=== PATIENT | female | born 1985 | race Caucasian/White ===

== ENCOUNTER 2016-06-24 20:20 | Emergency (ER) | payer OTHER ==
[~2016-06-24] VITALS: Ht 154.9 cm; Wt 68.5 kg
[2016-06-24 20:42] VITALS: BP 134/76
--- NOTE | 2016-06-24 21:51 | NUR ---
PATIENT AMBULATED TO ER BED 4.
--- NOTE | 2016-06-24 21:55 | NUR ---
PATIENT PRESENTS TO ED WITH C/O ABD PAIN X 1 WEEK, WITH N/V AND DIARRHEA X 1 DAY SKIN IS PINK/WARM/DRY; AAOX4 WITH EVEN AND STEADY GAIT; LUNGS CLEAR BL; HR EVEN AND REGULAR; PT DENIES ANY FEVER, CP, SOB, OR COUGH AT THIS TIME; PATIENT STATES PAIN OF 10/10 AT THIS TIME; VSS; PATIENT POSITIONED FOR COMFORT; HOB ELEVATED; BEDRAILS UP X2; BED DOWN. ER MD MADE AWARE OF PT STATUS.
--- NOTE | 2016-06-24 22:15 | NUR ---
PATIENT BEING EVALUATED BY DR. LEACH.
[2016-06-24 23:54] VITALS: BP 134/76
== END 2016-06-24 23:54 | disposition home or self-care (01) ==
LOC: MED 20:20
DX: A08.4 Viral intestinal infection, unspecified (principal)

== ENCOUNTER 2018-04-28 08:14 | Emergency (ER) | payer OTHER ==
[~2018-04-28] VITALS: Ht 154.9 cm; Wt 66.7 kg
[2018-04-28 08:19] VITALS: BP 130/92
--- NOTE | 2018-04-28 08:23 | NUR ---
PT AMBULATES TO BED 4
--- NOTE | 2018-04-28 08:26 | NUR ---
PATIENT PRESENTS TO ED WITH C/O NAUSEA, VOMITING, AND DIZZINESS SINCE SUNDAY. 2X VOMITING TODAY. REPORTS 9 WEEKS . LMP 02/24/2018, . NOT TAKING ANY MEDS. AAOX4 WITH EVEN AND STEADY GAIT; LUNGS CLEAR BL; HR EVEN AND REGULAR; PT DENIES ANY FEVER, CP, SOB, OR COUGH AT THIS TIME; SKIN IS PINK/WARM/DRY; DENIES PAIN, VSS; PATIENT POSITIONED FOR COMFORT; HOB ELEVATED; BEDRAILS UP X2; BED DOWN. ER MD MADE AWARE OF PT STATUS.
[2018-04-28] MEDS ORDERED: ONDANSETRON 4 MG ODT PO ONE (08:30)
--- NOTE | 2018-04-28 08:30 | NUR ---
Patient being evaluated by physician at bedside.
[2018-04-28 09:12] LABS: COLOR,URINE YELLOW (YELLOW); PH,URINE 7.5 (5.0-9.0)
[2018-04-28 09:13] LABS: APPEARANCE,URINE CLEAR (CLEAR); BILIRUBIN,URINE NEGATIVE (NEGATIVE); BLOOD, URINE NEGATIVE (NEGATIVE); LEUKOCYTE ESTERASE ,URINE NEGATIVE (NEGATIVE); NITRITE, URINE NEGATIVE (NEGATIVE); UGLUCOSE NEGATIVE (NEGATIVE)
[2018-04-28 10:00] VITALS: BP 122/88
--- NOTE | 2018-04-28 10:00 | NUR ---
Patient discharged with v/s stable. Written and verbal after care instructions given and explained. Patient alert, oriented and verbalized understanding of instructions. Ambulatory with steady gait. All questions addressed prior to discharge. ID band removed. Rx of ZOFRAN given. Patient educated on indication of medication including possible reaction and side effects. Patient advised to follow up with PMD.
== END 2018-04-28 10:00 | disposition home or self-care (01) ==
LOC: MED 08:14
DX: O21.8 Other vomiting complicating pregnancy (principal); Z3A.09 9 weeks gestation of pregnancy
CPT/HCPCS: 81003; 99283; Q0162

== ENCOUNTER 2018-05-05 09:20 | Emergency (ER) | payer OTHER ==
[~2018-05-05] VITALS: Ht 154.9 cm; Wt 64.4 kg
[2018-05-05 09:24] VITALS: BP 120/78
--- NOTE | 2018-05-05 09:34 | NUR ---
PATIENT AMBULATED TO BED 6 AT THIS TIME.
--- NOTE | 2018-05-05 09:35 | NUR ---
C/O BLEEDING PER VAGINA, LOWER ABDOMINAL PAIN & LOWER BACK PAIN X YESTERDAY. DENIES TRAUMA,N/V/D. LMP 02/24/18 . A0. PT STATED PREG 9 WEEKS.MED HX:DENIES. PATIENT STATES PAIN OF 9/10 AT THIS TIME; VSS; PATIENT POSITIONED FOR COMFORT; HOB ELEVATED; BEDRAILS UP X2; BED DOWN. ER MD MADE AWARE OF PT STATUS.
--- NOTE | 2018-05-05 10:01 | NUR ---
US AT BEDSIDE
[2018-05-05 10:10] LABS: BASOPHILS % (AUTO) 0.3 % (0.0-2.0); EOSINOPHILS # (AUTO) 0.1 K/uL (0-0.4); EOSINOPHILS % (AUTO) 1.6 % (0.0-4.0); HEMATOCRIT 39.1 % (36-48); HEMOGLOBIN 13.4 g/dL (12.0-16.0); LYMPHOCYTES # (AUTO) 1.7 K/uL (2.5-16.5); LYMPHOCYTES % (AUTO) 22.1 % (20.5-51.1); MEAN CORPUSCULAR HEMOGLOBIN 30 pg (27-31); MEAN CORPUSCULAR HGB CONC 34 g/dL (33-37); MEAN CORPUSCULAR VOLUME 86.8 fL (80-94); MONOCYTES # (AUTO) 0.5 K/uL (0.8-1.0); NEUTROPHILS # (AUTO) 5.5 K/uL (1.8-7.7); PLATELET COUNT (AUTO) 241 K/uL (140-450); RED BLOOD CELL COUNT(AUTO) 4.51 MIL/uL (4.20-5.40); RED CELL DISTRIBUTION WIDTH 13.2 % (11.6-13.7); WHITE BLOOD COUNT (AUTO) 7.9 K/uL (4.8-10.8)
[2018-05-05 10:20] LABS: ANION GAP 14.1 (8-16); CARBON DIOXIDE 22.6 mmol/L (21-32); CREATININE 0.5 mg/dL (0.6-1.3); POTASSIUM 3.7 mmol/L (3.5-5.1)
--- NOTE | 2018-05-05 10:22 | NUR ---
US GAVE DR VELASCO REPORT AT THIS TIME.
[2018-05-05 10:27] LABS: ALBUMIN 3.2 g/dL (3.4-5.0); TOTAL BILIRUBIN 0.6 mg/dL (0.0-1.0)
[2018-05-05 10:33] VITALS: BP 120/78
--- NOTE | 2018-05-05 10:33 | NUR ---
Patient discharged with v/s stable. Written and verbal after care instructions given and explained. Patient verbalized understanding. Ambulatory with steady gait. All questions addressed prior to discharge. Advised to follow up with PMD.
== END 2018-05-05 10:33 | disposition home or self-care (01) ==
LOC: MED 09:20
DX: O26.851 Spotting complicating pregnancy, first trimester (principal); O26.891 Other specified pregnancy related conditions, first trimester; R10.30 Lower abdominal pain, unspecified; Z3A.09 9 weeks gestation of pregnancy
CPT/HCPCS: 36415; 76801; 80053; 81002; 81025; 84702; 85025; 86900; 86901; 99284; Q0092

== ENCOUNTER 2018-05-13 02:45 | Emergency (ER) | payer OTHER ==
[~2018-05-13] VITALS: Ht 154.9 cm; Wt 64.9 kg
[2018-05-13 02:50] VITALS: BP 139/90
--- NOTE | 2018-05-13 02:50 | NUR ---
TO BED # 05 AMBULATORY, REPORT GIVEN TO JIE WHITLEY
--- NOTE | 2018-05-13 03:00 | NUR ---
PT BIB SELF C/O LOWER ABD PAIN. PT STATES SUDDEN ON SET OF LOWER ABD CRAMPING, RADIATES TO RIGHT LOWER BACK; PT STATES 10/10 PAIN; +DYSRUIA, +BURNING W/ URINATION, +HESITENCY AND +RETENTION W/ URINATION. PT STATES NAUSEA. LMP: 02/24/18; . SKIN WARM, DRY AND INTACT. PT ACTING APPROPRIATLY. PT IN GOWN, IN BED; BED IN LOWER LOCKED POSITION. ER AWARE OF PT STATUS. PMH: DENIES RX: DENIES
[2018-05-13 03:30] LABS: BASOPHILS % (AUTO) 0.3 % (0.0-2.0); EOSINOPHILS # (AUTO) 0.1 K/uL (0-0.4); EOSINOPHILS % (AUTO) 0.7 % (0.0-4.0); HEMATOCRIT 35.8 % (36-48); HEMOGLOBIN 12.3 g/dL (12.0-16.0); LYMPHOCYTES # (AUTO) 1.4 K/uL (2.5-16.5); LYMPHOCYTES % (AUTO) 15.8 % (20.5-51.1); MEAN CORPUSCULAR HEMOGLOBIN 30 pg (27-31); MEAN CORPUSCULAR HGB CONC 34 g/dL (33-37); MEAN CORPUSCULAR VOLUME 87.3 fL (80-94); MONOCYTES # (AUTO) 0.5 K/uL (0.8-1.0); MONOCYTES % (AUTO) 5.8 % (1.7-9.3); NEUTROPHILS # (AUTO) 7.1 K/uL (1.8-7.7); NEUTROPHILS % (AUTO) 77.4 % (42.2-75.2); PLATELET COUNT (AUTO) 223 K/uL (140-450); RED CELL DISTRIBUTION WIDTH 13.1 % (11.6-13.7); WHITE BLOOD COUNT (AUTO) 9.2 K/uL (4.8-10.8)
--- NOTE | 2018-05-13 04:30 | NUR ---
US AT BEDSIDE.
[2018-05-13 05:28] LABS: APPEARANCE,URINE SL CLOUDY (CLEAR); BILIRUBIN,URINE NEGATIVE (NEGATIVE); BLOOD, URINE 3+ (NEGATIVE); COLOR,URINE YELLOW (YELLOW); LEUKOCYTE ESTERASE ,URINE NEGATIVE (NEGATIVE); NITRITE, URINE NEGATIVE (NEGATIVE); UGLUCOSE NEGATIVE (NEGATIVE)
--- NOTE | 2018-05-13 05:28 | NUR ---
Patient discharged with v/s stable. Patient states she is ready to go home, patient states 3/10 pain at this time, patient acting appropriatly Written and verbal after care instructions given and explained. Patient alert, oriented and verbalized understanding of instructions. Ambulatory with steady gait. All questions addressed prior to discharge. ID band removed. Patient advised to follow up with PMD. Rx of MiraLax Powder for Solution given. Patient educated on indication of medication including possible reaction and side effects. Opportunity to ask questions provided and answered.
[2018-05-13 05:30] VITALS: BP 129/89
[2018-05-13 06:26] LABS: RBC,URINE TOO NUMEROUS TO COUN /HPF (0-5); WBC,URINE 0-5 /HPF (0-5)
== END 2018-05-13 05:28 | disposition home or self-care (01) ==
LOC: MED 02:45
DX: O20.8 Other hemorrhage in early pregnancy (principal); O26.891 Other specified pregnancy related conditions, first trimester; K59.00 Constipation, unspecified; Z3A.11 11 weeks gestation of pregnancy
CPT/HCPCS: 36415; 76817; 81001; 81025; 84702; 85025; 86900; 86901; 99284; Q0092

== ENCOUNTER 2018-11-23 01:04 | Emergency (ER) | payer OTHER ==
[~2018-11-23] VITALS: Ht 154.9 cm; Wt 68.9 kg
[2018-11-23 01:14] VITALS: BP 124/78
--- NOTE | 2018-11-23 01:17 | NUR ---
PT TO [facility].
--- NOTE | 2018-11-23 03:08 | NUR ---
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 PT STATES THIS IS THE FIRST TIME SHE HAS EXPERIENCED THIS PAIN. PT DENIES BLOOD OR PAIN/BURNING WITH URINATION. PT DOES STATE THAT SHE TRIED TO URINATE AT HOME AND SHE WAS UNABLE TO. -- PT AWAKE, A/O X 4. CALM, COOPERATIVE. PT APPEARS UNCOMFORTABLE. ANSWERS QUESTIONS IN FULL/COMPLETE SENTENCES. BEHAVIOR AGE APPROPRIATE. -- SKIN PINK, WARM, DRY. BREATHING EVEN, UNLABORED. PMH-- DENIES RX-- DENIES
--- NOTE | 2018-11-23 04:00 | NUR ---
DR. ORTA EVALUATING AT BEDSIDE.
--- NOTE | 2018-11-23 04:49 | NUR ---
DR. ORTA PERFORMING US AT BEDSIDE.
[2018-11-23 05:20] VITALS: BP 123/81
== END 2018-11-23 05:20 | disposition home or self-care (01) ==
LOC: MED 01:04
DX: N20.0 Calculus of kidney (principal)
CPT/HCPCS: 81002; 81025; 99283

== ENCOUNTER 2020-02-01 14:12 | Emergency (ER) | payer OTHER ==
[~2020-02-01] VITALS: Ht 154.9 cm; Wt 61.2 kg
[2020-02-01 14:27] VITALS: BP 132/67
[2020-02-01] MEDS ORDERED: NACL 0.9% 1,000 ML IV ONE (15:00)
[2020-02-01] MEDS ORDERED: ONDANSETRON 4 MG/2 ML VIAL IVP ONE ×2 (15:05→16:45)
--- NOTE | 2020-02-01 15:07 | NUR ---
TAKEN PT TO [facility].
--- NOTE | 2020-02-01 15:15 | NUR ---
PT C/O EPIGASTRIC PAIN WITH NAUSEA AND VOMITING FOR ONE WEEK. PT HAD 7 TIMES OF VOMITING DAILY. DENIES ANY DIARRHEA. NO COVID SYMPTOMS AT THIS TIME. NO PMH NKDA
[2020-02-01 15:21] LABS: BASOPHILS % (AUTO) 0.3 % (0.0-2.0); EOSINOPHILS % (AUTO) 0.5 % (0.0-4.0); HEMATOCRIT 40.5 % (36-48); HEMOGLOBIN 13.5 g/dL (12.0-16.0); LYMPHOCYTES # (AUTO) 2.1 K/uL (2.5-16.5); LYMPHOCYTES % (AUTO) 24.5 % (20.5-51.1); MEAN CORPUSCULAR HEMOGLOBIN 30 pg (27-31); MEAN CORPUSCULAR HGB CONC 33 g/dL (33-37); MEAN CORPUSCULAR VOLUME 89.3 fL (80-94); MONOCYTES # (AUTO) 0.5 K/uL (0.8-1.0); MONOCYTES % (AUTO) 6.1 % (1.7-9.3); NEUTROPHILS # (AUTO) 5.8 K/uL (1.8-7.7); NEUTROPHILS % (AUTO) 68.6 % (42.2-75.2); PLATELET COUNT (AUTO) 247 K/uL (140-450); RED BLOOD CELL COUNT(AUTO) 4.53 MIL/uL (4.20-5.40); RED CELL DISTRIBUTION WIDTH 13.4 % (11.6-13.7); WHITE BLOOD COUNT (AUTO) 8.5 K/uL (4.8-10.8)
[2020-02-01 15:39] LABS: ALBUMIN 4.1 g/dL (3.4-5.0); ANION GAP 12.5 (8-16); CARBON DIOXIDE 29.3 mmol/L (21-32); CREATININE 0.7 mg/dL (0.6-1.3); POTASSIUM 3.8 mmol/L (3.5-5.1); TOTAL BILIRUBIN 0.7 mg/dL (0.0-1.0)
[2020-02-01] MEDS ORDERED: ONDANSETRON 4 MG/2 ML VIAL ONE (16:46)
[2020-02-01 16:55] VITALS: BP 125/65
--- NOTE | 2020-02-01 16:55 | NUR ---
Patient discharged with v/s stable. Written and verbal after care instructions given and explained. Patient alert, oriented and verbalized understanding of instructions. Ambulatory with steady gait. All questions addressed prior to discharge. ID band removed. Patient advised to follow up with PMD. Rx of Zofran and Omeprazole given. Patient educated on indication of medication including possible reaction and side effects. Opportunity to ask questions provided and answered.
== END 2020-02-01 16:55 | disposition home or self-care (01) ==
LOC: MED 14:12
DX: K29.70 Gastritis, unspecified, without bleeding (principal)
CPT/HCPCS: 36415; 80053; 83690; 84702; 85025; 96361; 96374; 96376; 99284; J2405; J7030

== ENCOUNTER 2022-03-26 08:59 | Emergency (ER) | payer OTHER ==
[~2022-03-26] VITALS: Ht 154.9 cm; Wt 67.1 kg
[2022-03-26 09:03] VITALS: BP 120/77
--- NOTE | 2022-03-26 09:07 | NUR ---
PT AMBULATED TO ER BED 8
--- NOTE | 2022-03-26 09:10 | NUR ---
DR BAILEY AT BEDSIDE EVALUATING PT
[2022-03-26] MEDS ORDERED: NACL 0.9% 1,000 ML IV ONE (09:15)
[2022-03-26] MEDS ORDERED: ONDANSETRON 4 MG/2 ML VIAL IVP ONE (09:15)
[2022-03-26] MEDS ORDERED: KETOROLAC 15 MG/ML VIAL IVP ONE (09:15)
--- NOTE | 2022-03-26 09:34 | NUR ---
36YO FEMALE PT C/O SHARP EPIGASTIC PAIN AND N/V-blood XYESTERDAY. REPORT SUDDEN CONSTANT ONSET. ABD NON DISTENDED , TENDER TO TOUCH . STATES PREVIOUS S/S TO GASTRITIS OR AFTER DRINKING ALCOHOL. DENIES RECENT DRINKING, TAKING MEDICATION, DIARRHEA, FEVER, CHILLS OR CHANGES IN DIET/DAILY ROUTINE. PT AAOX4, NO VISIBLE DISTRESS. RESPIRATIONS EVEN AND UNLABORED. HOB POSITIONED PER COMFORT. HX:GASTRITIS NKA
[2022-03-26 09:37] LABS: APPEARANCE,URINE CLOUDY (CLEAR); BILIRUBIN,URINE NEGATIVE (NEGATIVE); BLOOD, URINE NEGATIVE (NEGATIVE); COLOR,URINE YELLOW (YELLOW); LEUKOCYTE ESTERASE ,URINE NEGATIVE (NEGATIVE); NITRITE, URINE NEGATIVE (NEGATIVE); PH,URINE 7.5 (5.0-9.0); UGLUCOSE NEGATIVE (NEGATIVE)
[2022-03-26 09:37] LABS: BASOPHILS % (AUTO) 0.3 % (0.0-2.0); EOSINOPHILS % (AUTO) 0.5 % (0.0-4.0); HEMATOCRIT 42.5 % (36-48); HEMOGLOBIN 14.3 g/dL (12.0-16.0); LYMPHOCYTES # (AUTO) 1.7 K/uL (2.5-16.5); LYMPHOCYTES % (AUTO) 26.4 % (20.5-51.1); MEAN CORPUSCULAR HEMOGLOBIN 30 pg (27-31); MEAN CORPUSCULAR HGB CONC 34 g/dL (33-37); MEAN CORPUSCULAR VOLUME 89.2 fL (80-94); MONOCYTES # (AUTO) 0.5 K/uL (0.8-1.0); MONOCYTES % (AUTO) 7.5 % (1.7-9.3); NEUTROPHILS # (AUTO) 4.3 K/uL (1.8-7.7); NEUTROPHILS % (AUTO) 65.3 % (42.2-75.2); PLATELET COUNT (AUTO) 254 K/uL (140-450); RED BLOOD CELL COUNT(AUTO) 4.76 MIL/uL (4.20-5.40); RED CELL DISTRIBUTION WIDTH 13.3 % (11.6-13.7); WHITE BLOOD COUNT (AUTO) 6.5 K/uL (4.8-10.8)
[2022-03-26 09:46] LABS: RBC,URINE NONE SEEN /HPF (0-5); URINE AMORPHOUS URATE 1+ /HPF (None Seen); WBC,URINE 0-5 /HPF (0-5)
[2022-03-26 09:58] LABS: ALBUMIN 4.2 g/dL (3.4-5.0); ANION GAP 11.5 (8-16); CARBON DIOXIDE 30.6 mmol/L (21-32); CREATININE 0.9 mg/dL (0.6-1.3); POTASSIUM 4.1 mmol/L (3.5-5.1); TOTAL BILIRUBIN 1.3 mg/dL (0.0-1.0)
[2022-03-26] MEDS ORDERED: FAMO-90 PO (11:03)
[2022-03-26] MEDS ORDERED: ONDA-188 PO (11:03)
--- NOTE | 2022-03-26 11:13 | NUR ---
IV removed, catheter intact and site benign. Applied folded 4x4 gauze and tape to stop bleeding.
--- NOTE | 2022-03-26 11:14 | NUR ---
Patient discharged with v/s stable. Written and verbal after care instructions FOR GASTRITIS given and explained. Patient alert, oriented and verbalized understanding of instructions. Ambulatory with steady gait. All questions addressed prior to discharge. ID band removed. Patient advised to follow up with PMD. Rx of ZOFRAN AND PEPCID given. Opportunity to ask questions provided and answered.
[2022-03-26 11:15] VITALS: BP 119/65
--- NOTE | 2022-03-26 11:15 | NUR ---
The patient's care was reviewed and supervised by Lisa Ambrose RN.
== END 2022-03-26 11:16 | disposition home or self-care (01) ==
LOC: MED 08:59
DX: K29.00 Acute gastritis without bleeding (principal); R11.2 Nausea with vomiting, unspecified; Z87.442 Personal history of urinary calculi; Z79.899 Other long term (current) drug therapy
CPT/HCPCS: 36415; 80053; 81001; 81025; 83690; 85025; 96361; 96374; 96375; 99284; J1885; J2405; J7030

== ENCOUNTER 2022-12-07 11:55 | Emergency (ER) | payer OTHER ==
[~2022-12-07] VITALS: Ht 154.9 cm; Wt 63.5 kg
[~2022-12-07 11:55] MED LIST: FAMO-90 PO; ONDA-188 PO
[2022-12-07 12:13] VITALS: BP 120/81; PULSE 75; RESP 16; TEMP 97.4; O2SAT 99
[2022-12-07 12:22] LABS: BASOPHILS % (AUTO) 0.3 % (0.0-2.0); EOSINOPHILS # (AUTO) 0.1 K/uL (0-0.4); EOSINOPHILS % (AUTO) 0.8 % (0.0-4.0); HEMATOCRIT 40.8 % (36-48); HEMOGLOBIN 13.7 g/dL (12.0-16.0); LYMPHOCYTES % (AUTO) 25.9 % (20.5-51.1); MEAN CORPUSCULAR HEMOGLOBIN 30 pg (27-31); MEAN CORPUSCULAR HGB CONC 34 g/dL (33-37); MEAN CORPUSCULAR VOLUME 88.5 fL (80-94); MONOCYTES # (AUTO) 0.6 K/uL (0.8-1.0); MONOCYTES % (AUTO) 7.4 % (1.7-9.3); NEUTROPHILS # (AUTO) 5.1 K/uL (1.8-7.7); NEUTROPHILS % (AUTO) 65.6 % (42.2-75.2); PLATELET COUNT (AUTO) 247 K/uL (140-450); RED BLOOD CELL COUNT(AUTO) 4.61 MIL/uL (4.20-5.40); RED CELL DISTRIBUTION WIDTH 13.2 % (11.6-13.7); WHITE BLOOD COUNT (AUTO) 7.7 K/uL (4.8-10.8)
[2022-12-07 12:52] LABS: ANION GAP 13.4 (8-16); CALCIUM 8.8 mg/dL (8.5-10.1); CARBON DIOXIDE 26.4 mmol/L (21-32); CREATININE 0.9 mg/dL (0.6-1.3); POTASSIUM 3.8 mmol/L (3.5-5.1); TOTAL BILIRUBIN 0.6 mg/dL (0.0-1.0); TOTAL PROTEIN, SERUM 7.4 g/dL (6.4-8.2)
[2022-12-07 13:28] LABS: BILIRUBIN,URINE NEGATIVE (NEGATIVE); BLOOD, URINE NEGATIVE (NEGATIVE); LEUKOCYTE ESTERASE ,URINE NEGATIVE (NEGATIVE); NITRITE, URINE NEGATIVE (NEGATIVE); PROTEIN,URINE NEGATIVE (NEGATIVE); UGLUCOSE NEGATIVE (NEGATIVE); UROBILINOGEN,URINE 0.2 EU/dL (0.2 - 1)
[2022-12-07 13:30] LABS: APPEARANCE,URINE CLEAR (CLEAR); COLOR,URINE YELLOW (YELLOW)
[2022-12-07 14:13] VITALS: BP 114/76; PULSE 68; RESP 14; TEMP 98.1; O2SAT 99
== END 2022-12-07 14:11 | disposition home or self-care (01) ==
LOC: MED 11:55
DX: R10.30 Lower abdominal pain, unspecified (principal); R30.0 Dysuria; Z79.899 Other long term (current) drug therapy
CPT/HCPCS: 36415; 80053; 81003; 81025; 83690; 85025; 99283